=== PATIENT | male | born 1975 | race African-American/Black ===

== ENCOUNTER 2017-05-18 13:51 | Emergency (ER) | payer SELFPAY ==
[2017-05-18] MEDS ORDERED: KETOROLAC 30 MG/1 ML SDV IM ONE (13:57)
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
[2017-05-18 14:36] VITALS: PULSE 83; RESP 18; TEMP 98.4; O2SAT 97
[2017-05-18] MEDS ORDERED: IBUPROFEN 600 MG TAB PO ONE ×2 (14:38→14:39)
[2017-05-18 15:28] VITALS: BP 112/84
== END 2017-05-18 15:28 | disposition home or self-care (01) ==
DX: S16.1XXA Strain of muscle, fascia and tendon at neck level, initial encounter (principal); V89.2XXA Person injured in unspecified motor-vehicle accident, traffic, initial encounter; Y92.410 Unspecified street and highway as the place of occurrence of the external cause